=== PATIENT | female | born 1970 | race Caucasian/White ===

== ENCOUNTER 2023-11-24 07:09 | Emergency (ER) | payer BC ==
[~2023-11-24] VITALS: Ht 167.6 cm; Wt 74.8 kg
[2023-11-24 07:15] VITALS: BP_SYST 162; PULSE 72; RESP 16; TEMP 97.2; O2SAT 100
[2023-11-24 07:43] LABS: BILIRUBIN,URINE NEGATIVE (NEGATIVE); BLOOD, URINE 2+ (NEGATIVE); CLARITY/URINE CLEAR (CLEAR); COLOR,URINE YELLOW (YELLOW); GLUCOSE,URINE NEGATIVE (NEGATIVE); KETONES,URINE NEGATIVE (NEGATIVE); LEUKOCYTE ESTERASE ,URINE NEGATIVE (NEGATIVE); NITRITE, URINE NEGATIVE (NEGATIVE); PROTEIN URINE NEGATIVE (NEGATIVE); UROBILINOGEN,URINE 0.2 (0.2-1.0)
[2023-11-24] MEDS: KETOROLAC TROMETHAMINE 30 MG VIAL IVP ONE (07:53)
[2023-11-24] MEDS: ACETAMINOPHEN 500 MG TABLET PO ONE (07:54)
[2023-11-24 08:00] LABS: BACTERIA,URINE MODERATE /HPF (None Seen); RBC,URINE 0-3 /HPF (0-3); WBC,URINE 0-3 /HPF (0-3)
[2023-11-24 08:48] LABS: BASOPHILS % (AUTO) 0.5 % (0.0-2.0); EOSINOPHILS # (AUTO) 0.1 K/uL (0.0-0.4); EOSINOPHILS % (AUTO) 0.9 % (0.0-4.0); HEMATOCRIT 42.2 % (36-48); HEMOGLOBIN 14.7 g/dL (12.0-16.0); LYMPHOCYTES # (AUTO) 2.3 K/uL (1.0-5.5); LYMPHOCYTES % (AUTO) 31.1 % (20.5-51.5); MEAN CORPUSCULAR HEMOGLOBIN 33 pg (27-31); MEAN CORPUSCULAR HGB CONC 35 % (32-36); MEAN CORPUSCULAR VOLUME 95 fL (79.0-98.0); MONOCYTES # (AUTO) 0.4 K/uL (0.0-1.0); MONOCYTES % (AUTO) 5.2 % (1.7-9.3); NEUTROPHILS # (AUTO) 4.5 K/uL (1.8-7.7); NEUTROPHILS % (AUTO) 62.3 % (40.0-70.0); PLATELET COUNT (AUTO) 222 K/uL (130-430); RED BLOOD CELL COUNT(AUTO) 4.46 MIL/uL (4.2-6.2); WHITE BLOOD COUNT (AUTO) 7.2 K/uL (4.8-10.8)
[2023-11-24 09:06] LABS: ALBUMIN 3.8 g/dL (3.4-4.8); BILIRUBIN,DIRECT 0.1 mg/dL (0.0-0.3); CALCIUM 8.4 mg/dL (8.4-11.0); CREATININE 0.97 mg/dL (0.55-1.30); POTASSIUM 3.5 mmol/L (3.5-5.1); TOTAL BILIRUBIN 0.6 mg/dL (0.0-1.0); TOTAL PROTEIN, SERUM 7.2 g/dL (6.4-8.3)
[2023-11-24] MEDS ORDERED: SENN8.6T19 PO (10:13)
[2023-11-24] MEDS ORDERED: AUG875 PO (10:13)
[2023-11-24 10:26] VITALS: BP_SYST 132; PULSE 73; RESP 17; TEMP 97.7; O2SAT 97
== END 2023-11-24 10:24 | disposition home or self-care (01) ==
LOC: SED 07:09
DX: K57.92 Diverticulitis of intestine, part unspecified, without perforation or abscess without bleeding (principal); K52.9 Noninfective gastroenteritis and colitis, unspecified; R10.32 Left lower quadrant pain; R82.71 Bacteriuria
CPT/HCPCS: 99285; 74177; 96374; 76856; 80076; 80048; 81001; 83690; 85025; 87086; 36415; 81025; 81000; 81015; J1885